=== PATIENT | male | born 1990 | race Caucasian/White ===

== ENCOUNTER 2016-11-19 19:55 | Inpatient (IN) ==
[2016-11-19] MEDS ORDERED: 0.9 % SODIUM CHLORIDE 1,000 ML IV ONE (21:29)
[2016-11-19] MEDS ORDERED: CLINDAMYCIN 600 MG in DEXTROSE 5% IN WATER 50 ML IV ONE (21:34)
[2016-11-19] MEDS: HYDROmorphone 2 MG/ML SYRINGE IV PRN ×2 (21:41→23:55)
--- NOTE | 2016-11-19 21:49 | Emergency Department Note ---
Dental HPI - General Chief complaint: Dental/Oral Stated complaint: swelling from abscess tooth Time Seen by Provider: 11/19/16 21:14 Source: patient Mode of arrival: ambulatory Limitations: no limitations - History of Present Illness HPI Narrative: 26 year old male presents with right sided facial swelling. He was seen here on the for dental pain and was prescribed Clindamycin. His swelling has gotten worse. He has Hot-potato voice and difficulty swallowing. No difficulty breathing. He states it isn't much pain but is pressure. He was seen here in August and diagnosed with Sialoadenitis. He was given Clinda and the next day was rushed to [facility] with a peritonsillar abscess. He had his tonsil out on the right side only. He is afraid this will happen again. He has had chills on and off. He wanted to come back yesterday but wanted to "give the antibiotics time". - Related Data Previous Rx's Medication Instructions Recorded Clindamycin HCl [Cleocin] 300 mg PO QID #40 capsule 11/16/16 Naproxen 500 mg PO BID #30 tablet 11/16/16 Allergies Allergy/AdvReac Type Severity Reaction Status Date / Time Penicillins Allergy Intermediate Difficulty Verified 09/06/16 03:26 Breathing Review of Systems All systems ED: reviewed and negative except as stated. Past Medical History - Past Medical History Medical history: Reports: other (previous tonsillar abscess) Surgical history ED: Reports: tonsillectomy (right side only) Family history: Reports: non-contributory - Social History smoking status: Current every day smoker Alcohol use: Reports: Unknown Drug use: Reports: unknown Physical Exam - General Limitations: no limitations General appearance: alert, other (unconfortable. Hot Potato voice) - Head Head exam: atraumatic - Eye Eye exam: Present: normal appearance. Absent: conjunctival injection - ENT ENT exam: mucous membranes moist, other (swelling extends 6cm below the jaw line on the right. There is also swelling up the cheek. Tender on palpation. Barely able to open his mouth. There is swelling of the posterior pharynx and swifting of the uvula to the left. No drainage seen. Foul breath) - Neck Neck exam: Present: tenderness. Absent: normal inspection, full ROM - Chest Chest inspection: Present: normal inspection, symmetric chest wall rise - Respiratory Respiratory exam: Present: normal lung sounds bilaterally - Cardiovascular Cardiovascular exam: Present: tachycardia, normal heart sounds - Abdominal Exam Abdominal exam: Present: soft, normal bowel sounds. Absent: tenderness - Extremities Exam Extremities exam: Present: normal inspection, full ROM - Neurological Exam Neurological exam: Present: alert, oriented X3, CN II-XII intact - Psychiatric Psychiatric exam: Present: normal affect, normal mood - Skin Skin exam: Present: warm, dry, intact Course Course Narrative: Patient care transferred to Dr. Bergman. Moved to ER T4 Vital Signs Temperature 97.6 F 11/19/16 19:56 Pulse Rate 113 H 11/19/16 19:56 Respiratory Rate 20 11/19/16 19:56 Blood Pressure 123/69 11/19/16 19:56 Pulse Oximetry (%) 97 11/19/16 19:56 Temperature 97.6 F 11/19/16 19:56 Pulse Rate 113 H 11/19/16 19:56 Respiratory Rate 20 11/19/16 19:56 Blood Pressure 123/69 11/19/16 19:56 Pulse Oximetry (%) 97 11/19/16 19:56 Dental/Oral - Lab Data Result diagrams: 11/19/16 21:30 11/19/16 21:30 Disposition Condition: Good Referrals: No,PCP [Primary Care Provider] -
[2016-11-19 22:10] LABS: Mean Cell Volume 86.2 fL (80.0-100.0); Mean Corpuscular Hemoglobin 29.4 pg (26.0-34.0); Platelet Count 247 K/mcL (140-440); RBC 4.79 M/mcL (4.50-5.90); Red Cell Distribution Width 13.2 % (11.5-14.5)
[2016-11-19 22:25] LABS: ALT/SGPT 11 U/l (0-40); Albumin 3.8 gm/dL (3.2-5.2); Alkaline Phosphatase 84 U/L (39-117); Blood Urea Nitrogen 15 mg/dl (6-20)
[2016-11-19 22:36] LABS: Band Neutrophils % 4 % (0-10); Lymphocytes % 9 % (15-49); Monocytes % (Manual) 9 % (1-12); Platelet Estimate NORMAL (NORMAL); RBC Morphology NORMAL (NORMAL); Segmented Neutrophils % 78 % (38-78)
[2016-11-19] MEDS ORDERED: DEXAMETHASONE 10 MG/ML VIAL IV ONE (23:15)
--- NOTE | 2016-11-19 23:36 | Internal Med History&Physical ---
Medical - H&P: [facility] Patient information: Note initiated : 11/19/16 at 11:32 pm Service Date, if different from initiated Date: [] Patient: Mckinley Gao 26 y/o M admitted on for swelling from abscess tooth. Chief Complaint: [] History of present illness: Mr. Gao is a 26 year old male presents today complaining of right-sided facial swelling, and difficulty swallowing. this patient was diagnosed with a left tonsillar abscess in August of this year, and underwent tonsillectomy. He says he did fine for about one month and then 2 days ago started to have pain and swelling in his right lower jaw and right face. He presented to the emergency room 2 days ago, and was given a prescription for oral clindamycin. He returned to the emergency room this evening, with fever and chills, increasing swelling and pain and a muffled voice. He is having some pain with trying to swallow, but denies shortness of breath or stridor. ER evaluation did show a 2.4 cm right. Tonsillar abscess. Dr. Ceron of ENT was contacted and suggested IV steroids and clindamycin. The patient currently reports his pain as 7 out of 10. -otherwise, the patient does report a mild headache. He says he has been struggling with pain and a right lower molar for at least several days, but has been unable to find a dentist. He denies new eye or ear symptoms, sore throat or cough, chest pain or palpitations, shortness of breath, abdominal pain, nausea or vomiting, diarrhea or constipation, dysuria. past medical history: recent peritonsillar abscess, status post right tonsillectomy. tobacco abuse current medications: Clindamycin 300 mg by mouth 4 times a day Naprosyn 500 mg by mouth twice a day allergies:Penicillin Family history: mother is , with a history of Crohn's disease and fibromyalgia. Father is , health was unknown. A grandmother had breast cancer. Social history: Patient is a current smoker.he has been smoking half pack of cigarettes per day on and off for at least 3 years. He denies alcohol or drug use. He works as a pharmacy clinical specialist. He is currently living with a roommate, and just recently started going through a divorce. Medical - H&P: Meds Home Medications Medication Instructions Recorded Confirmed Type Clindamycin HCl [Cleocin] 300 mg PO QID #40 capsule 11/16/16 11/19/16 Rx Naproxen 500 mg PO BID #30 tablet 11/16/16 11/19/16 Rx Allergies Allergy/AdvReac Type Severity Reaction Status Date / Time Penicillins Allergy Intermediate Difficulty Verified 09/06/16 03:26 Breathing Medical - H&P: Exam - Constitutional Vitals: Temp Pulse Resp BP Pulse Ox 97.6 F 113 H 20 123/69 97 11/19/16 19:56 11/19/16 19:56 11/19/16 19:56 11/19/16 19:56 11/19/16 19:56 on exam, he is a well-developed well-nourished young man who appears uncomfortable. Head: Normocephalic, atraumatic. Ears: TMs and canals are clear. Eyes:PERRLA, EOMI, anicteric. Pharynx:Is rather crowded. There is inflammation of the right lower jaw and market inflammation of the right posterior pharynx which is impinging on the airway somewhat. Otherwise, teeth appear in good repair. there is marked swelling of his right face down into the right submandibular area, with marked lymphadenopathy and tenderness. Neck: is supple, without JVD, thyromegaly, or bruits. Cardiac exam: Regular rate and rhythm, with normal S1 and S2, without murmurs, rubs, gallops. Lungs: Clear to auscultation, without rales, rhonchi, wheezes. Abdomen: Soft and nontender, without obvious masses. Extremities: Show no cyanosis, clubbing, edema. Neurologic:Patient is alert and oriented 3. Speech is a little bit muffled due to facial swelling. Otherwise exam is grossly nonfocal. Skin exam: Does not show any rashes or other worrisome lesions. Medical - H&P: Reslt - Labs CBC & Chem 7: 11/19/16 21:30 11/19/16 21:30 Labs: Short CBC 11/19/16 Range/Units 21:30 WBC 18.8 H (4.5-11.0) K/mcL Hgb 14.1 (13.5-16.5) g/dL Hct 41.3 (41.0-55.0) % Plt Count 247 (140-440) K/mcL BMP 11/19/16 21:30 Sodium 135 Potassium 3.5 Chloride 96 Carbon Dioxide 22 BUN 15 Creatinine 1.0 Glucose 106 H Calcium 8.9 Liver Function 11/19/16 Range/Units 21:30 Total Bilirubin 0.6 (0.0-1.0) mg/dL AST 14 (0-37) U/l ALT 11 (0-40) U/l Alkaline Phosphatase 84 (39-117) U/L Albumin 3.8 (3.2-5.2) gm/dL cT scan of neck: reported as showing a 2.4 cm peritonsillar abscess. Medical - H&P: A/P (1) Peritonsillar abscess Current visit: Yes Status: Acute (2) Tobacco abuse Current visit: Yes Status: Acute (3) Increased anion gap metabolic acidosis Current visit: Yes Status: Acute (4) Dental abscess Current visit: No Status: Acute - Narrative A/P Narrative: #1. ENT. Peritonsillar abscess, recurrent. -admit for IV fluids, IV antibiotics. -ENT consult.-Dr. Thayer may also contact an oral surgeon to rule out dental abscess tomorrow. -Pain meds 32. Infectious disease. -Patient meets SIRS criteria He so far, he does not appear to be septic. .-iV clindamycin,check blood cultures. -IV fluids. #3. Tobacco abuse. nicotine patch, if desired. #4. CODE STATUS: Full code. #5. DVT prophylaxis:Patient should be fairly low risk as he is ambulatory, and has minimal other risk factors. This visit took approximately 50 minutes, to review patient's records, interview and examine him, reviewed the case with the ANTONELLA Peoples, and write orders.
[2016-11-20] MEDS ORDERED: MAGNESIUM HYDROXIDE 30 ML ORAL.SUSP PO PRN (00:17)
[2016-11-20] MEDS ORDERED: ACETAMINOPHEN 325 MG TABLET PO PRN (00:17)
[2016-11-20] MEDS ORDERED: ONDANSETRON 4 MG/2 ML VIAL IV PRN (00:17)
[2016-11-20] MEDS ORDERED: POTASSIUM CHLORIDE 20 MEQ in DEXTROSE 5%-1/2NS 1,000 ML IV SCH (00:17)
[2016-11-20] MEDS ORDERED: NALOXONE HCL 0.4 MG/ML VIAL IV PRN (00:17)
[2016-11-20] MEDS ORDERED: HYDROmorphone 2 MG/ML SYRINGE ONE (00:46)
[2016-11-20] MEDS ORDERED: LORazepam 2 MG/ML VIAL IV PRN (00:46)
[2016-11-20] MEDS: 0.9 % SODIUM CHLORIDE 10 ML SYRINGE IV SCH ×4 (00:49→22:40)
[2016-11-20] MEDS: HYDROmorphone 2 MG/ML SYRINGE IV PRN ×5 (00:49→21:23)
[2016-11-20] MEDS: CLINDAMYCIN 300 MG in DEXTROSE 5% IN WATER 50 ML IV SCH ×3 (01:44→11:15)
[2016-11-20] MEDS ORDERED: CLINDAMYCIN 600 MG/4 ML VIAL ONE ×2 (04:42→11:03)
[2016-11-20 06:28] LABS: Basophils # (Auto) 0 K/mcL (0.0-0.3); Basophils % (Auto) 0.2 % (0.0-2.0); Eosinophils # (Auto) 0 K/mcL (0.0-0.7); Eosinophils % (Auto) 0 % (0.0-7.0); Granulocytes % (Auto) 94.7 % (38.0-78.0); Lymphocytes # (Auto) 0.6 K/mcL (1.5-4.8); Lymphocytes % (Auto) 3.2 % (15.5-49.0); Mean Cell Volume 86.9 fL (80.0-100.0); Mean Corpuscular HGB Conc 33.7 g/dL (31.0-36.0); Mean Corpuscular Hemoglobin 29.3 pg (26.0-34.0); Monocytes # (Auto) 0.3 K/mcL (0.1-0.9); Monocytes % (Auto) 1.9 % (1.0-12.0); Platelet Count 218 K/mcL (140-440); Red Cell Distribution Width 13.6 % (11.5-14.5)
[2016-11-20] MEDS ORDERED: DEXTROSE 5%-1/2NS W/20MEQ KCL 1,000 ML IV SCH (06:45)
[2016-11-20 06:59] LABS: Erythrocyte Sedimentation Rate 60 mm/hr (0-15)
[2016-11-20 07:06] LABS: ALT/SGPT 11 U/l (0-40); Albumin 3.7 gm/dL (3.2-5.2); Albumin/Globulin Ratio 1.1 (1.0-2.3); Alkaline Phosphatase 97 U/L (39-117); Bilirubin,Direct < 0.2 mg/dL (0.0-0.3); Blood Urea Nitrogen 12 mg/dl (6-20); Gamma Glutamyl Transpeptidase 24 U/L (8-61); Magnesium 2.3 mg/dL (1.6-2.5); Uric Acid 4.7 mg/dL (2.5-8.0)
[2016-11-20] MEDS: POTASSIUM CHLORIDE 20 MEQ in 0.45 % SODIUM CHLORIDE 1,000 ML IV SCH ×3 (09:22→20:30)
[2016-11-20] MEDS ORDERED: NICOTINE 21 MG PATCH TOPICAL SCH (10:00)
--- NOTE | 2016-11-20 12:41 | Internal Med Progress Note ---
Medical - PN: Subj Patient information: Note initiated : 11/20/16 at 12:41 pm Service Date, if different from initiated Date: [] Patient: Mckinley Gao 26 y/o M admitted on 11/20/16 for swelling from abscess tooth. Chief Complaint: [] Interval history: November 19, 2016: History of present illness: Mr. Gao is a 26 year old male presents today complaining of right-sided facial swelling, and difficulty swallowing. this patient was diagnosed with a left tonsillar abscess in August of this year, and underwent tonsillectomy. He says he did fine for about one month and then 2 days ago started to have pain and swelling in his right lower jaw and right face. He presented to the emergency room 2 days ago, and was given a prescription for oral clindamycin. He returned to the emergency room this evening, with fever and chills, increasing swelling and pain and a muffled voice. He is having some pain with trying to swallow, but denies shortness of breath or stridor. ER evaluation did show a 2.4 cm right. Tonsillar abscess. Dr. Ceron of ENT was contacted and suggested IV steroids and clindamycin. The patient currently reports his pain as 7 out of 10. -otherwise, the patient does report a mild headache. He says he has been struggling with pain and a right lower molar for at least several days, but has been unable to find a dentist. He denies new eye or ear symptoms, sore throat or cough, chest pain or palpitations, shortness of breath, abdominal pain, nausea or vomiting, diarrhea or constipation, dysuria. November 20, 2016: he patient reports he is feeling quite a bit better this morning. His throat feels less swollen and he is having less difficulty swallowing. He still has discomfort if he tries to chew food on the right side. He did have several episodes of chills and sweats during the night but this morning does not feel subjective fever or chills. He otherwise denies headache or dizziness, ear pain, significant trouble swallowing, chest pain or palpitations, shortness of breath, nausea or vomiting , diarrhea or constipation, dysuria. I did contact Dr. Alfaro of ENT this morning. He does not feel that it is appropriate for ENTto drain this patient's abscess again and instead feels that the patient needs to have several abscessed teeth pulled as this appears to be the root cause of his problem. I then called Dr. Morel of oral surgery, and reviewed the case with him. He will try to come over late this afternoon to review the patient's studies, and consult. - Constitutional Vitals: Vital Signs Temp Pulse Resp BP Pulse Ox 98.6 F 84 12 121/76 97 11/20/16 11:57 11/20/16 11:57 11/20/16 11:57 11/20/16 11:57 11/20/16 11:57 Period Temp Pulse Resp BP Sys/Salvador Pulse Ox Last 24 Hr 97.6 F-98.6 F 84-113 12- 121-136/69-87 97-98 Intake and Output 11/19/16 11/20/16 11/20/16 21:59 05:59 13:59 Intake Total 200 / 1254 240 / 240 Output Total 300 / 300 Balance -100 / 954 240 / 240 Weight 198 lb Intake & Output: Intake & Output 11/19/16 11/20/16 11/20/16 21:59 05:59 13:59 Intake Total 200 / 1254 240 / 240 Output Total 300 / 300 Balance -100 / 954 240 / 240 Weight 198 lb Intake: Oral 200 / 200 240 / 240 Output: Void Amount 300 / 300 Other: Meal Nourishment/Supplement Breakfast Percent of Meal Consumed 75% 25% Feeding Ability Independent Independent Pharynx:Is rather crowded. There continues to be inflammation of the right lower jaw and marked inflammation of the right posterior pharynx which is impinging on the airway somewhat. I don't see any obviously abscessed teeth, but the patient is unable to open his mouth fully, due to pain and swelling. Certainly the area around the right posterior lower molars is very swollen. there is marked swelling of his right face down into the right submandibular area, with marked lymphadenopathy and tenderness. the swelling seems improved today. Neck: is supple, without JVD, thyromegaly, or bruits. Cardiac exam: Regular rate and rhythm, with normal S1 and S2. Lungs: Clear to auscultation, without rales, rhonchi, wheezes. Abdomen: Soft and nontender, without obvious masses. Extremities: Show no cyanosis, clubbing, edema. Neurologic:Patient is alert and oriented 3. Speech is less muffled today. Medical - PN: Obj Da - Labs CBC & Chem 7: 11/20/16 05:17 11/20/16 05:17 Labs: Abnormal Lab Results 11/20/16 11/20/16 05:17 05:17 WBC 17.7 H Hct 40.0 L Gran % 94.7 H Lymph % (Auto) 3.2 L Gran # 16.8 H Lymph # 0.6 L ESR 60 H Glucose 190 H Phosphorus 2.1 L cT scan of the neck: Reportedly showed a 2.6 cm peritonsillar abscess on the right. Meds: Medications Acetaminophen (Tylenol) 650 mg PO Q6HP PRN PRN Reason: PAIN/FEVER > 101 Hydromorphone HCl (Dilaudid) 1 mg IV Q1H PRN PRN Reason: Pain Last Admin: 11/20/16 08:54 Dose: 1 mg Clindamycin Phosphate 300 mg/ (Dextrose) 52 mls @ 100 mls/hr IV Q6H [facility]KE Last Admin: 11/20/16 11:15 Dose: 100 mls/hr Potassium Chloride 20 meq/ (Sodium Chloride) 1,010 mls @ 100 mls/hr IV .Q10H6M [facility] Last Admin: 11/20/16 09:22 Dose: 100 mls/hr Lorazepam (Ativan) 0.5 mg IV HS PRN PRN Reason: Sleep Magnesium Hydroxide (Milk Of Magnesia) 30 ml PO DAILYP PRN PRN Reason: Constipation Naloxone HCl (Narcan) 0.1 mg IV Q2MIN PRN PRN Reason: Opiate Reversal Nicotine (Nicoderm) 21 mg TOPICAL DAILY@1000 BURKE Ondansetron HCl (Zofran) 4 mg IV Q6HP PRN PRN Reason: Nausea And Vomiting Sodium Chloride (Saline Flush) 10 ml IV Q8 [facility] Last Admin: 11/20/16 05:18 Dose: Not Given Medical - PN: A/P - Time Spent With Patient Total time spent is greater than 50% in coordination of care (as documented) at patient's floor/unit and/or counseling patient: 25 - 35 minutes (1) Peritonsillar abscess Status: Acute Current Visit: Yes (2) Tobacco abuse Status: Acute Current Visit: Yes (3) Increased anion gap metabolic acidosis Status: Acute Current Visit: Yes (4) Dental abscess Status: Acute Current Visit: No - Narrative A/P Narrative: #1. ENT. Peritonsillar abscess, recurrent. the patient tells me that he actually had the right tonsil removed in August ENT feels this is an abscess extending from his right lower jaw molars. -Dr. Morel from oral surgery has been consulted. He will try to see the patient later today. -Continue IV fluids and IV clindamycin. -Pain meds 32. Infectious disease. -Patient meets SIRS criteria .he is quite a bit improved today. .-iV clindamycin,check blood cultures. -IV fluids. #3. Tobacco abuse. nicotine patch was ordered. #4. CODE STATUS: Full code. #5. DVT prophylaxis:Patient should be fairly low risk as he is ambulatory, and has minimal other risk factors. This visit took approximately 30 minutes today, to interview and examine the patient, review test results, review his case with both Dr. Alfaro of ENT and Dr. Morel of oral surgery. Medical - PN: Qual - VTE Deep Vein Thrombosis/Pulmonary Embolism Present on Admission: No
--- NOTE | 2016-11-20 15:59 | General Surgery Consult Note ---
History of Present Illness Patient information: Note initiated : 11/20/16 at 3:57 pm Service Date, if different from initiated Date: [] Patient: Mckinley Gao 26 y/o M admitted on 11/20/16 for swelling from abscess tooth. Chief Complaint: PATIENT HAS SWELLING OF RIGHT FACE WITH TOOTH PAIN AND DIFFICULTY OPENING MOUTH AND SWALLOWING. Reason for consult: other (FACIAL ABSCESS ASSUMED ODONTOGENIC ORIGIN) Requesting physician: Honey Carnes History of present illness: 48 HOURS OF INCREASED DENTAL PAIN AND SWELLING. WENT TO MULTIPLE PROVIDERS AND NOT TREATED. CAME TO ER AND ADMITTED WITH ELEVATED WHITE COUNT, FACIAL SWELLING , TRISMUS AND DYSPHAGIA. HE IS CURRENTLY ON DEXAMETHASONE AND CLINDAMYCIN. PATIENT REPORTS IT IS A LITTLE BETTER. PMH: REVIEWED [facility]: REVIEWED MEDS: REVIEWED ALLG: REVIEWED PE; PATIENT IS AWAKE, ALERT WITH SWELLING OF HIS RIGHT JAW. HE HAS SWELLING OF HIS RIGHT CASINO CHANGE ATTENDANT AND SUBMANDIBULAR SPACE MILD TO MODERATE WITH INDURATION. MAXIMUM INCISAL OPENING OF 1.5-2 CM FLOOR OF MOUTH AND RIGHT BUCCAL SPACE HAVE MILD SWELLING I REVIEWED LABS A: ASA 2 MALE WITH RIGHT ODONTOGENIC ABSCESS WITH SWELLING IN THE RIGHT CASINO CHANGE ATTENDANT AND SUBMANDIBULAR SPACE p: PATIENT LAST AT 5.5 HOURS AGO. HE IS STABLE FOR NOW. WE WE PLACE ON PULSEOXYMETRY AND DO HIM FIRST THING IN THE MORNING. I WILL UP HIS CLINDAMYCIN TO 600MG QID IV. HE IS TO BE NPO. Medications and Allergies Home Medications Medication Instructions Recorded Confirmed Type Clindamycin HCl [Cleocin] 300 mg PO QID #40 capsule 11/16/16 11/20/16 Rx Naproxen 500 mg PO BID #30 tablet 11/16/16 11/20/16 Rx Allergies Allergy/AdvReac Type Severity Reaction Status Date / Time Penicillins Allergy Severe Difficulty Verified 11/20/16 06:41 Breathing Exam Temp Pulse Resp BP Pulse Ox 98.6 F 84 12 121/76 97 11/20/16 11:57 11/20/16 11:57 11/20/16 11:57 11/20/16 11:57 11/20/16 11:57 Results - Labs 11/20/16 05:17 11/20/16 05:17 Abnormal lab results 11/20/16 11/20/16 Range/Units 05:17 05: WBC 17.7 H (4.5-11.0) K/mcL Hct 40.0 L (41.0-55.0) % Gran % 94.7 H (38.0-78.0) % Lymph % (Auto) 3.2 L (15.5-49.0) % Gran # 16.8 H (1.8-8.0) K/mcL Lymph # 0.6 L (1.5-4.8) K/mcL ESR 60 H (0-15) mm/hr Glucose 190 H (70-105) mg/dL Phosphorus 2.1 L (2.7-4.5) mg/dL Diabetes panel 11/20/16 Range/Units 05:17 Sodium 137 (133-145) mmol/L Potassium 4.1 (3.3-5.1) mmol/L Chloride 101 (96-108) mmol/L Carbon Dioxide 24 (22-30) mmol/L BUN 12 (6-20) mg/dl Creatinine 0.9 (0.7-1.2) mg/dl Glucose 190 H (70-105) mg/dL Calcium 9.0 (8.6-10.4) mg/dl AST 13 (0-37) U/l ALT 11 (0-40) U/l Alkaline Phosphatase 97 (39-117) U/L Total Protein 7.0 (5.9-8.4) gm/dL Albumin 3.7 (3.2-5.2) gm/dL Triglycerides 90 (<150) mg/dl Calcium panel 11/20/16 Range/Units 05:17 Calcium 9.0 (8.6-10.4) mg/dl Phosphorus 2.1 L (2.7-4.5) mg/dL Albumin 3.7 (3.2-5.2) gm/dL Pituitary panel 11/20/16 Range/Units 05:17 Sodium 137 (133-145) mmol/L Potassium 4.1 (3.3-5.1) mmol/L Chloride 101 (96-108) mmol/L Carbon Dioxide 24 (22-30) mmol/L BUN 12 (6-20) mg/dl Creatinine 0.9 (0.7-1.2) mg/dl Glucose 190 H (70-105) mg/dL Calcium 9.0 (8.6-10.4) mg/dl Adrenal panel 11/20/16 Range/Units 05:17 Sodium 137 (133-145) mmol/L Potassium 4.1 (3.3-5.1) mmol/L Chloride 101 (96-108) mmol/L Carbon Dioxide 24 (22-30) mmol/L BUN 12 (6-20) mg/dl Creatinine 0.9 (0.7-1.2) mg/dl Glucose 190 H (70-105) mg/dL Calcium 9.0 (8.6-10.4) mg/dl Total Bilirubin 0.4 (0.0-1.0) mg/dL AST 13 (0-37) U/l ALT 11 (0-40) U/l Alkaline Phosphatase 97 (39-117) U/L Total Protein 7.0 (5.9-8.4) gm/dL Albumin 3.7 (3.2-5.2) gm/dL All other labs normal.
[2016-11-20] MEDS: CLINDAMYCIN 600 MG in DEXTROSE 5% IN WATER 50 ML IV SCH ×2 (17:32→23:16)
[2016-11-21] MEDS: HYDROmorphone 2 MG/ML SYRINGE IV PRN ×9 (00:53→22:24)
[2016-11-21] MEDS: POTASSIUM CHLORIDE 20 MEQ in 0.45 % SODIUM CHLORIDE 1,000 ML IV SCH ×3 (05:12→21:43)
[2016-11-21] MEDS: CLINDAMYCIN 600 MG in DEXTROSE 5% IN WATER 50 ML IV SCH ×4 (05:58→23:50)
[2016-11-21] MEDS: 0.9 % SODIUM CHLORIDE 10 ML SYRINGE IV SCH ×3 (06:01→22:22)
[2016-11-21 06:02] LABS: Basophils # (Auto) 0.1 K/mcL (0.0-0.3); Basophils % (Auto) 0.2 % (0.0-2.0); Eosinophils # (Auto) 0 K/mcL (0.0-0.7); Eosinophils % (Auto) 0 % (0.0-7.0); Granulocytes % (Auto) 82.9 % (38.0-78.0); Lymphocytes % (Auto) 9.5 % (15.5-49.0); Mean Cell Volume 87.2 fL (80.0-100.0); Mean Corpuscular HGB Conc 33.9 g/dL (31.0-36.0); Mean Corpuscular Hemoglobin 29.6 pg (26.0-34.0); Monocytes # (Auto) 1.5 K/mcL (0.1-0.9); Monocytes % (Auto) 7.4 % (1.0-12.0); Platelet Count 243 K/mcL (140-440); RBC 4.04 M/mcL (4.50-5.90); Red Cell Distribution Width 13.6 % (11.5-14.5)
[2016-11-21 06:29] LABS: ALT/SGPT 11 U/l (0-40); Albumin 3.3 gm/dL (3.2-5.2); Alkaline Phosphatase 109 U/L (39-117); Bilirubin,Direct < 0.2 mg/dL (0.0-0.3); Blood Urea Nitrogen 14 mg/dl (6-20); Gamma Glutamyl Transpeptidase 21 U/L (8-61); Magnesium 1.8 mg/dL (1.6-2.5); Uric Acid 4.5 mg/dL (2.5-8.0)
[2016-11-21] MEDS ORDERED: ceFAZolin 1 GM VIAL ONE (07:39)
[2016-11-21] MEDS ORDERED: KETAMINE 100 MG/ML ML IV ONE (07:40)
[2016-11-21] MEDS ORDERED: ONDANSETRON 4 MG/2 ML VIAL IV ONE (07:40)
[2016-11-21] MEDS ORDERED: LIDOCAINE HCL/PF 100 MG/5 ML SYRINGE IV ONE (07:40)
[2016-11-21] MEDS ORDERED: ROCURONIUM 10 MG/ML ML IV ONE (07:40)
[2016-11-21] MEDS ORDERED: PROPOFOL 200 MG/20 ML VIAL IV ONE (07:40)
[2016-11-21] MEDS ORDERED: fentaNYL 250 MCG/5 ML VIAL IV ONE (07:40)
[2016-11-21] MEDS ORDERED: DEXAMETHASONE 10 MG/ML VIAL IV ONE (07:40)
[2016-11-21] MEDS ORDERED: KETOROLAC 30 MG/ML VIAL IV ONE (07:40)
[2016-11-21] MEDS ORDERED: HYDROmorphone 2 MG/ML SYRINGE IV ONE (07:40)
[2016-11-21] MEDS ORDERED: SUCCINYLCHOLINE 20 MG/ML ML IV ONE (07:40)
[2016-11-21] MEDS ORDERED: MIDAZOLAM 5 MG/5 ML VIAL IV ONE (07:40)
[2016-11-21] MEDS ORDERED: ceFAZolin 1 GM VIAL IV SCH (07:45)
[2016-11-21 08:16] LABS: Erythrocyte Sedimentation Rate 57 mm/hr (0-15)
[2016-11-21] MEDS ORDERED: IPRATROPIUM/ALBUTEROL 3 ML AMPUL.NEB NEB PRN (08:23)
[2016-11-21] MEDS ORDERED: diphenhydrAMINE 50 MG/ML VIAL IV PRN (08:23)
[2016-11-21] MEDS ORDERED: PROMETHAZINE 25 MG/ML VIAL IM PRN (08:23)
[2016-11-21] MEDS ORDERED: MEPERIDINE 25 MG/ML SYRINGE IV PRN (08:23)
[2016-11-21] MEDS ORDERED: ONDANSETRON 4 MG/2 ML VIAL IV PRN ×2 (08:23→09:28)
[2016-11-21] MEDS ORDERED: BENZOCAINE/MENTHOL 1 LOZENGE PO PRN ×2 (08:23→09:28)
[2016-11-21] MEDS ORDERED: fentaNYL 100 MCG/2 ML VIAL IV PRN ×2 (08:23→09:28)
[2016-11-21] MEDS ORDERED: LACTATED RINGERS 250 ML IV PRN (08:23)
[2016-11-21] MEDS ORDERED: PROMETHAZINE 25 MG/ML VIAL IV PRN (08:23)
[2016-11-21] MEDS ORDERED: ePHEDrine 50 MG/ML AMPUL IV PRN (08:23)
[2016-11-21] MEDS ORDERED: HYDROmorphone 2 MG/ML SYRINGE IV PRN (08:23)
[2016-11-21] MEDS ORDERED: MEPERIDINE 50 MG/ML SYRINGE IM PRN (08:23)
[2016-11-21] MEDS ORDERED: METOCLOPRAMIDE 10 MG/2 ML VIAL IV PRN (08:23)
[2016-11-21] MEDS ORDERED: FLUMAZENIL 0.1 MG/ML ML IV PRN (08:23)
[2016-11-21] MEDS ORDERED: METHOCARBAMOL 1,000 MG/10 ML VIAL IV PRN (08:23)
[2016-11-21] MEDS ORDERED: LACTATED RINGERS 1,000 ML IV SCH (08:30)
[2016-11-21] MEDS ORDERED: BUPIVACAINE W/EPI 0.5% 50 ML VIAL IJ ONE (08:34)
--- NOTE | 2016-11-21 08:56 | Brief Operative Note ---
Date of procedure: 11/21/16 Pre-op diagnosis: Right submandibular, plant machinist space abscess; carious dentition Post-op diagnosis: other (Right plant machinist space abscess, right submandibular space abscess, right peritonsillar abscess, carious infected ,32) Procedure: incision and drainage of right peritonsillar space abscess, incision and drainage of right submandibular space abscess, removal of impacted malopposed , 32 Grafts/Implants: No Anesthesia: GETA Findings: 150 cc purulence right peritonsillar, submandibular and plant machinist space Complications: none Surgeon: Mayra Morel Specimens Removed/Pathology: other (purulence right neck and throat for cultures and sensitivities) Condition: critical Disposition: ICU (intubated with airway surveillance)
[2016-11-21] MEDS ORDERED: KETOROLAC 30 MG/ML VIAL IV PRN (09:00)
[2016-11-21] MEDS ORDERED: ACETAMINOPHEN 1,000 MG/100 ML BOTTLE IV PRN (09:00)
[2016-11-21] MEDS ORDERED: PROPOFOL 1,000 MG in PREMIX 1 BAG IV ONE ×3 (09:25→12:07)
[2016-11-21] MEDS ORDERED: MAGNESIUM HYDROXIDE 30 ML ORAL.SUSP PO PRN (09:28)
[2016-11-21] MEDS ORDERED: NALOXONE HCL 0.4 MG/ML VIAL IV PRN (09:28)
[2016-11-21] MEDS ORDERED: ACETAMINOPHEN 325 MG TABLET PO PRN (09:28)
[2016-11-21] MEDS ORDERED: IPRATROPIUM/ALBUTEROL 3 ML AMPUL.NEB NEB SCH (09:30)
[2016-11-21] MEDS ORDERED: PROPOFOL 100 ML IV SCH (09:30)
[2016-11-21] MEDS: methylPREDNISolone SOD SUCC 125 MG/2 ML VIAL IV SCH ×3 (10:23→21:43)
[2016-11-21] MEDS: NICOTINE 21 MG PATCH TOPICAL SCH (10:41)
--- NOTE | 2016-11-21 11:35 | XRay Report ---
CLINICAL INFORMATION: ET placement COMPARISON: None. FINDINGS: Endotracheal tip is on the sara. The heart is normal for technique. Mediastinum and pulmonary vessels are unremarkable. There is mild bibasilar atelectasis. No effusion IMPRESSION: Malpositioned endotracheal tube - tip is on the sara. Nurses instructed to withdraw tube 3 cm Mild bibasilar atelectasis. Interpreted and Authenticated by: Chandler Polanco 11/21/16
--- NOTE | 2016-11-21 11:40 | Operative Note ---
DATE OF OPERATION: 11/21/2016 PREOPERATIVE DIAGNOSES: 1. Emergent airway. 2. Right peritonsillar abscess. 3. Right submandibular abscess. 4. Right supervisor taping space abscess. POSTOPERATIVE DIAGNOSES: 1. Emergent airway. 2. Right peritonsillar abscess. 3. Right submandibular abscess. 4. Right supervisor taping space abscess. 5. Carious, infected, fractured teeth 1 and 32. PROCEDURE: 1. Incision and drainage of right peritonsillar abscess, right submandibular space abscess, right supervisor taping space abscess. 2. Removal of teeth 1 and 32. SURGEON: Mayra Morel DDS. ANESTHESIA: C-Mac oral endotracheal tube general anesthetic. ESTIMATED BLOOD LOSS: 150 mL. SPECIMENS: Purulent right peritonsillar and right submandibular space submitted for culture and sensitivity. FLUIDS: 1.2 liters of Lactated Ringer's. DRAINS: Right neck 1/2-inch [place] in the submandibular and supervisor taping space. DRESSINGS: Drain dressing, right face and neck. DISPOSITION: Critical, to the ICU. HISTORY: This is a 26-year-old male who has been treated by an ear, nose and throat surgeon for peritonsillar abscess and peripharyngeal abscess on multiple occasions. The patient has been very noncompliant and recently has been feeling he has had odontogenic pain. He has been unable to afford and unwilling to pay for getting these teeth removed by a dentist. He went to the emergency room two days ago with pain, swelling, trismus, difficulty swallowing. He was treated in the hospital, and I was consulted. I identified the diagnosis on the patient and consent the patient to go to the operating room for treatment. DESCRIPTION OF PROCEDURE: In the operating room he was emergently intubated with a C-Mac. It was a very difficult airway. He had a lot of soft palate and lateral pharyngeal edema. He was prepped and draped for an intraoral/extraoral complex approach to the submandibular space, the supervisor taping space and also to the tonsil space. Local anesthesia was used to anesthetize these locations, and 15 blade was used to make incisions and mosquito hemostats and Crile hemostats were used to access these areas. Copious purulence, approximately 150 mL of purulence was evacuated from the neck and peritonsillar spaces. Cultures were sent, and 1000 mL of fluid via red rubber catheter were used to irrigate these locations. Drains, 1/2-inch [place] were placed on both sides of the mandible, lingual and buccal to a dependent site in the neck. The throat pack was removed. Oropharynx, nasopharynx, hypopharynx were suctioned. An orogastric tube was placed, and patient was suctioned. Intraoral gauze and fluff with the Medipore were placed on the outside drains. The patient was then taken to the ICU intubated. He will be watched for airway surveillance prior to extubating. He will be on antibiotics and steroids. CHIO:raven Job ID: [id number] Doc ID: [id number] Mayra Morel DDS
--- NOTE | 2016-11-21 14:27 | XRay Report ---
CLINICAL INFORMATION: ET tube placement COMPARISON: 11/21/2016 FINDINGS: Endotracheal tube is now moderately position with the tip 4 cm above the sara. Heart size, mediastinum and pulmonary vessels are normal. There is now dense consolidation atelectasis the left lower lobe. Small left pleural effusion noted IMPRESSION: 1. The tracheal tube now in satisfactory position. 2. Densely consolidated atelectasis of the left lower lobe - suspect mucous plug obstruction of the left lower lobe bronchus Interpreted and Authenticated by: Chandler Polanco 11/21/16
--- NOTE | 2016-11-21 14:37 | Internal Med Progress Note ---
Medical - PN: Subj Patient information: Note initiated : 11/21/16 at 2:31 pm Service Date, if different from initiated Date: [] Patient: Mckinley Gao 26 y/o M admitted on 11/20/16 for Swelling from Abscess Tooth/Peritonsillar Abscess. Chief Complaint: [] Interval history: November 19, 2016: History of present illness: Mr. Gao is a 26 year old male presents today complaining of right-sided facial swelling, and difficulty swallowing. this patient was diagnosed with a left tonsillar abscess in August of this year, and underwent tonsillectomy. He says he did fine for about one month and then 2 days ago started to have pain and swelling in his right lower jaw and right face. He presented to the emergency room 2 days ago, and was given a prescription for oral clindamycin. He returned to the emergency room this evening, with fever and chills, increasing swelling and pain and a muffled voice. He is having some pain with trying to swallow, but denies shortness of breath or stridor. ER evaluation did show a 2.4 cm right. Tonsillar abscess. Dr. Ceron of ENT was contacted and suggested IV steroids and clindamycin. The patient currently reports his pain as 7 out of 10. -otherwise, the patient does report a mild headache. He says he has been struggling with pain and a right lower molar for at least several days, but has been unable to find a dentist. He denies new eye or ear symptoms, sore throat or cough, chest pain or palpitations, shortness of breath, abdominal pain, nausea or vomiting, diarrhea or constipation, dysuria. November 20, 2016: he patient reports he is feeling quite a bit better this morning. His throat feels less swollen and he is having less difficulty swallowing. He still has discomfort if he tries to chew food on the right side. He did have several episodes of chills and sweats during the night but this morning does not feel subjective fever or chills. He otherwise denies headache or dizziness, ear pain, significant trouble swallowing, chest pain or palpitations, shortness of breath, nausea or vomiting , diarrhea or constipation, dysuria. I did contact Dr. Alfaro of ENT this morning. He does not feel that it is appropriate for ENTto drain this patient's abscess again and instead feels that the patient needs to have several abscessed teeth pulled as this appears to be the root cause of his problem. I then called Dr. Morel of oral surgery, and reviewed the case with him. He will try to come over late this afternoon to review the patient's studies, and consult. November 21: Patient seen examined, the patient was seen after his surgery. On my evaluation patient was intubated and sedated. He underwent drainage of his abscess, periodental and peritonsillar abscess. There was concern for him maintaining his airway, therefore the patient was kept intubated and will remain so till we are comfortable extubating him. Dr Beckman is following the patient. Pertinent ROS: unable due to mental condition. Additional PMFSH (Level 3 Only): reviewed - Constitutional Vitals: Vital Signs Temp Pulse Resp BP Pulse Ox 99.0 F H 100 H 12 107/68 99 11/21/16 09:15 11/21/16 09:15 11/21/16 14:08 11/21/16 09:15 11/21/16 14:08 Period Temp Pulse Resp BP Sys/Salvador Pulse Ox Last 24 Hr 98.6 F-99.7 F 77-107 12-24 107-153/68-92 94-100 Intake and Output 11/21/16 11/21/16 11/21/16 05:59 13:59 21:59 Intake Total 354 / 354 4124 / 4124 97 / 97 Output Total 1370 / 1370 100 / 100 Balance 354 / 354 2754 / 2754 -3 / -3 Intake & Output: Intake & Output 11/21/16 11/21/16 11/21/16 05:59 13:59 21:59 Intake Total 354 / 354 4124 / 4124 97 / 97 Output Total 1370 / 1370 100 / 100 Balance 354 / 354 2754 / 2754 -3 / -3 Intake: IV 54 / 54 2324 / 2324 97 / 97 Cleocin 600 mg In / 107 / 107 Dextrose 5% in Water 50 ml @ 100 mls/hr IV Q6H [facility] Rx#:[id number] Potassium Chloride 20 Meq 1152 / 1152 In Sodium Chloride 0.45% 1,000 ml @ 100 mls/hr IV .Q10H6M [facility] Rx#: [id number] Diprivan 1,000 mg In 45 / 45 Premix 1 Bag @ 25 MCG/KG/ MIN 13.47 mls/hr IV . Q7H26M ONE Rx#:[id number] Oral 300 / 300 IV - Manual Only 1800 / 1800 Output: Urine Catheter Amount 1370 / 1370 100 / 100 Exam: Constitutional; Afebrile, intubated and sedated. Eyes- No icterus, , No periorbital swelling Ears- Ext ear normal, no discharge. Neck- Midline trachea, supple, right side swollen, drains noted. Respiratory system: Air Entry equal on both sides, No crackles or wheezing, no rhonchi. CVS- Rate rhythm regular, S1,S2 heard, no gallop, no rub. Abdomen- Soft nontender abdomen, no organomegaly, no tenderness, no guarding or rigidity, AIR POLLUTION SPECIALIST- AOOx0 sedated and intubated. Medical - PN: Obj Da - Labs CBC & Chem 7: 11/21/16 04:55 11/21/16 04:55 Labs: Abnormal Lab Results 11/21/16 11/21/16 11/20/16 04:55 04:55 05:17 WBC 20.9 H RBC 4.04 L Hgb 12.0 L Hct 35.3 L Gran % 82.9 H Lymph % (Auto) 9.5 L Gran # 17.3 H Lymph # [place] # 1.5 H ESR 57 H Glucose 109 H 190 H Phosphorus 2.1 L 11/20/16 05:17 WBC 17.7 H RBC Hgb Hct 40.0 L Gran % 94.7 H Lymph % (Auto) 3.2 L Gran # 16.8 H Lymph # 0.6 L [place] # ESR 60 H Glucose Phosphorus Meds: Medications Acetaminophen (Tylenol) 650 mg PO Q6HP PRN PRN Reason: PAIN/FEVER > 101 Chlorhexidine Gluconate (Peridex) 15 ml SWABMOUTH BID [facility] Famotidine (Pepcid) 20 mg IV Q12 [facility] Hydromorphone HCl (Dilaudid) 1 mg IV Q1HP PRN PRN Reason: Pain Last Admin: 11/21/16 11:04 Dose: 1 mg Clindamycin Phosphate 600 mg/ (Dextrose) 54 mls @ 100 mls/hr IV Q6H [facility] Last Infusion: 11/21/16 12:30 Dose: Infused Potassium Chloride 20 meq/ (Sodium Chloride) 1,010 mls @ 100 mls/hr IV .Q10H6M [facility] Last Infusion: 11/21/16 12:30 Dose: 100 mls/hr Magnesium Hydroxide (Milk Of Magnesia) 30 ml PO DAILYP PRN PRN Reason: Constipation Methylprednisolone Sodium Succinate (Solu-Medrol) 62.5 mg IV Q8 [facility] Last Admin: 11/21/16 10:23 Dose: 62.5 mg Naloxone HCl (Narcan) 0.1 mg IV Q2MIN PRN PRN Reason: Opiate Reversal Nicotine (Nicoderm) 21 mg TOPICAL DAILY@1000 [facility] Last Admin: 11/21/16 10:41 Dose: 21 mg Ondansetron HCl (Zofran) 4 mg IV Q6HP PRN PRN Reason: Nausea And Vomiting Sodium Chloride (Saline Flush) 10 ml IV Q8 [facility] Medical - PN: A/P - Time Spent With Patient Total time spent is greater than 50% in coordination of care (as documented) at patient's floor/unit and/or counseling patient: Greater than 35 minutes (Critical care time spent, reviwing ABG, managing Vent, IV sedation, labs and care coordination.) - Narrative A/P Narrative: Periodontal Abscess/ Yeimi tonsillar abscess: s/p drainage, continue IV steroids and IV clindamycin, await cultures. OMS following Sepsis: due to above, not in shock, source control and IV abx Mechanical Ventilation for airway protection: Due to edema in the neck. [facility] ventilation for now, IV steroids. Monitor. presently at baseline settings TV 500, Fio2 30, RR 12, PEEP 5, Peak airway pressure 17, PPlat 13 sedation proporol and IV prn dilaudid for pain. ABG reviewed, Acute respiratory acidosis/ Metabolic alkalosis. Ph is normal. DVT hepatin sq diet NPO for now. Code full Medical - PN: Qual - VTE Deep Vein Thrombosis/Pulmonary Embolism Present on Admission: No
[2016-11-21] MEDS: PROPOFOL 1,000 MG in PREMIX 1 BAG IV SCH ×2 (17:55→21:36)
--- NOTE | 2016-11-21 18:25 | Cat Scan Report ---
CLINICAL INFORMATION: Right facial swelling. History of tonsil surgery two months prior COMPARISON: None. TECHNIQUE: 80 cc of Isovue-300 were injected intravenously and 25 seconds later, 2.5 mm helical slices were obtained from the inferior orbit through the supraclavicular region. Following reconstruction, 2.5 mm sagittal and coronal reformations were processed. The exam was reviewed at bone and soft tissue windows FINDINGS: There is a large (5 cm maximal dimension) abscess diffusely throughout the right stone sawyer space involving the masseter muscles, superficial temporal and both medial lateral lateral pterygoid. It extends to the right pharyngeal wall displacing the pharynx leftward. There is mild (left than 50%) pharyngeal diameter narrowing [There is mild inflammatory changes in the region of the right palatine tonsil - this may be postsurgical rather than infectious. The There are multiple moderately enlarged reactive deep cervical lymph nodes including region level two and level three lymph nodes bilaterally. They're larger and more numerous on the right side. The carotid and jugular vascular systems are normal. Epiglottis and aryepiglottic folds and vocal cords are normal. The trachea is normal. Thyroid shows no abnormality. Lung apices are normal. The submandibular and parotid glands are unremarkable. IMPRESSION: 1. Large (5 cm) abscess dominating the entire right stone sawyer space. It involves the masseter, medial lateral lateral lateral pterygoid and superficial temporal muscle bellies. There is a 9 mm radiolucent lesion adjacent to the root of the right posterior mandibular molar which may represent an odontogenic abscess. This may account for the origin of the infection. The infection has displaced the pharynx leftward resulting in mild pharyngeal narrowing. There are also moderately enlarged reactive the cervical lymph nodes bilaterally at level two and level three. They're larger and more numerous on the right side. Interpreted and Authenticated by: Chandler Polanco 11/21/16
[2016-11-21] MEDS: HEPARIN 5,000 UNIT/ML VIAL SQ SCH (21:43)
[2016-11-21] MEDS: FAMOTIDINE/PF 20 MG/2 ML VIAL IV SCH (21:43)
[2016-11-21] MEDS: CHLORHEXIDINE GLUCONATE 1 ML ORAL.SOL SWABMOUTH SCH (21:44)
[2016-11-21] MEDS ORDERED: LORazepam 2 MG/ML VIAL ONE (22:42)
[2016-11-21] MEDS ORDERED: fentaNYL 2,500 MCG in 0.9 % SODIUM CHLORIDE 200 ML IV SCH (22:45)
[2016-11-21] MEDS ORDERED: fentaNYL 100 MCG/2 ML VIAL IV ONE (22:54)
[2016-11-22] MEDS: LORazepam 2 MG/ML VIAL IV PRN ×3 (00:10→21:37)
[2016-11-22] MEDS ORDERED: fentaNYL 100 MCG/2 ML VIAL IV ONE ×2 (03:27→03:42)
[2016-11-22] MEDS: methylPREDNISolone SOD SUCC 125 MG/2 ML VIAL IV SCH ×3 (05:23→21:36)
[2016-11-22] MEDS: CLINDAMYCIN 600 MG in DEXTROSE 5% IN WATER 50 ML IV SCH ×4 (05:24→23:59)
[2016-11-22] MEDS: 0.9 % SODIUM CHLORIDE 10 ML SYRINGE IV SCH ×3 (05:24→20:28)
[2016-11-22 05:32] LABS: Basophils # (Auto) 0 K/mcL (0.0-0.3); Basophils % (Auto) 0 % (0.0-2.0); Eosinophils # (Auto) 0 K/mcL (0.0-0.7); Eosinophils % (Auto) 0 % (0.0-7.0); Granulocytes % (Auto) 89.2 % (38.0-78.0); Lymphocytes # (Auto) 1.2 K/mcL (1.5-4.8); Mean Cell Volume 88.9 fL (80.0-100.0); Mean Corpuscular HGB Conc 33.5 g/dL (31.0-36.0); Mean Corpuscular Hemoglobin 29.8 pg (26.0-34.0); Monocytes # (Auto) 0.4 K/mcL (0.1-0.9); Monocytes % (Auto) 2.8 % (1.0-12.0); Platelet Count 235 K/mcL (140-440); RBC 4.14 M/mcL (4.50-5.90); Red Cell Distribution Width 13.4 % (11.5-14.5)
[2016-11-22 06:09] LABS: ALT/SGPT 9 U/l (0-40); Albumin 3.5 gm/dL (3.2-5.2); Albumin/Globulin Ratio 1.1 (1.0-2.3); Alkaline Phosphatase 74 U/L (39-117); Bilirubin,Direct < 0.2 mg/dL (0.0-0.3); Blood Urea Nitrogen 18 mg/dl (6-20); Gamma Glutamyl Transpeptidase 26 U/L (8-61); Magnesium 2.2 mg/dL (1.6-2.5)
--- NOTE | 2016-11-22 07:44 | XRay Report ---
CLINICAL INFORMATION: Dyspnea COMPARISON: 11/21/2016 FINDINGS: Endotracheal tube is in satisfactory position. Cardiomediastinal silhouette and pulmonary vessels are normal. The lungs are clear. No effusions. IMPRESSION: Negative exam - complete interval resolution in left lower lobe atelectasis Interpreted and Authenticated by: Chandler Polanco 11/22/16
[2016-11-22] MEDS ORDERED: RACEPINEPHRINE 0.5 ML AMPUL.NEB NEB ONE (08:06)
[2016-11-22] MEDS: POTASSIUM CHLORIDE 20 MEQ in 0.45 % SODIUM CHLORIDE 1,000 ML IV SCH ×2 (09:11→20:08)
[2016-11-22] MEDS: HEPARIN 5,000 UNIT/ML VIAL SQ SCH ×2 (09:24→20:27)
[2016-11-22] MEDS: CHLORHEXIDINE GLUCONATE 1 ML ORAL.SOL SWABMOUTH SCH ×2 (09:24→20:28)
[2016-11-22] MEDS: FAMOTIDINE/PF 20 MG/2 ML VIAL IV SCH ×2 (09:25→20:27)
--- NOTE | 2016-11-22 09:28 | Internal Med Progress Note ---
Medical - PN: Subj Patient information: Note initiated : 11/22/16 at 9:20 am Service Date, if different from initiated Date: [] Patient: Mckinley Gao 26 y/o M admitted on 11/20/16 for Swelling from Abscess Tooth/Peritonsillar Abscess. Chief Complaint: [] Interval history: November 19, 2016: History of present illness: Mr. Gao is a 26 year old male presents today complaining of right-sided facial swelling, and difficulty swallowing. this patient was diagnosed with a left tonsillar abscess in August of this year, and underwent tonsillectomy. He says he did fine for about one month and then 2 days ago started to have pain and swelling in his right lower jaw and right face. He presented to the emergency room 2 days ago, and was given a prescription for oral clindamycin. He returned to the emergency room this evening, with fever and chills, increasing swelling and pain and a muffled voice. He is having some pain with trying to swallow, but denies shortness of breath or stridor. ER evaluation did show a 2.4 cm right. Tonsillar abscess. Dr. Ceron of ENT was contacted and suggested IV steroids and clindamycin. The patient currently reports his pain as 7 out of 10. -otherwise, the patient does report a mild headache. He says he has been struggling with pain and a right lower molar for at least several days, but has been unable to find a dentist. He denies new eye or ear symptoms, sore throat or cough, chest pain or palpitations, shortness of breath, abdominal pain, nausea or vomiting, diarrhea or constipation, dysuria. November 20, 2016: he patient reports he is feeling quite a bit better this morning. His throat feels less swollen and he is having less difficulty swallowing. He still has discomfort if he tries to chew food on the right side. He did have several episodes of chills and sweats during the night but this morning does not feel subjective fever or chills. He otherwise denies headache or dizziness, ear pain, significant trouble swallowing, chest pain or palpitations, shortness of breath, nausea or vomiting , diarrhea or constipation, dysuria. I did contact Dr. Alfaro of ENT this morning. He does not feel that it is appropriate for ENT to drain this patient's abscess again and instead feels that the patient needs to have several abscessed teeth pulled as this appears to be the root cause of his problem. I then called Dr. Morel of oral surgery , and reviewed the case with him. He will try to come over late this afternoon to review the patient's studies, and consult. November 21: Patient seen examined, the patient was seen after his surgery. On my evaluation patient was intubated and sedated. He underwent drainage of his abscess, periodental and peritonsillar abscess. There was concern for him maintaining his airway, therefore the patient was kept intubated and will remain so till we are comfortable extubating him. Dr Beckman is following the patient. November 22: The patient seen examined, was sitting comfortably in the morning, awake wanting the tube out. He denied any discomfort. He was breathing at baseline vent settings. Leak test done and was positive,the patient was able to breath around the tube. Patient was extubated successfully to room air, he was able to cough after the procedure, racemic epi neb given, no wheezing or stridor noted. Patient to be kept on monitor for [address] to [address] air way stability. Pertinent ROS: Denies headache, dizziness Denies chest pain, palpitations Denies cough or shortness of breath Denies abdominal pain, vomiting x 1 after extubation. Additional PMFSH (Level 3 Only): reviewed - Constitutional Vitals: Vital Signs Temp Pulse Resp BP Pulse Ox 99.2 F H 110 H 16 150/85 100 11/22/16 04:00 11/22/16 08:24 11/22/16 08:24 11/22/16 07:01 11/22/16 08:25 Period Temp Pulse Resp BP Sys/Salvador Pulse Ox Last 24 Hr 98.2 F-100.1 F 52-110 12-20 94-150/58-86 96-100 Intake and Output 11/21/16 11/22/16 11/22/16 21:59 05:59 13:59 Intake Total 1793 / 1793 230 / 230 1010 / 1010 Output Total 690 / 690 515 / 515 45 / 45 Balance 1103 / 1103 -285 / -285 965 / 965 Weight 209 lb Intake & Output: Intake & Output 11/21/16 11/22/16 11/22/16 21:59 05:59 13:59 Intake Total 1793 / 1793 230 / 230 1010 / 1010 Output Total 690 / 690 515 / 515 45 / 45 Balance 1103 / 1103 -285 / -285 965 / 965 Weight 209 lb Intake: IV 1792 / 1792 130 / 130 1010 / 1010 Cleocin 600 mg In 54 / 54 108 / 108 Dextrose 5% in Water 50 ml @ 100 mls/hr IV Q6H [facility] Rx#:[id number] Potassium Chloride 20 Meq 1542 / 1542 1010 / 1010 In Sodium Chloride 0.45% 1,000 ml @ 100 mls/hr IV .Q10H6M [facility] Rx#: [id number] Diprivan 1,000 mg In 145 / 145 / 22 Premix 1 Bag @ 25 MCG/KG/ MIN 13.47 mls/hr IV . Q7H26M [facility] Rx#:[id number] IV - Manual Only 100 / 100 Output: Urine Catheter Amount 690 / 690 515 / 515 45 / 45 Other: # Bowel Movements 0 Exam: Constitutional; Afebrile, cooperative, alert, not in distress. Eyes- No icterus, , No periorbital swelling Ears- Ext ear normal, hearing normal to conversation. Neck- Midline trachea, supple Respiratory system: Air Entry equal on both sides, No crackles or wheezing, no rhonchi. No stridor CVS- Rate rhythm regular, S1,S2 heard, no gallop, no rub. Abdomen- Soft nontender abdomen, no organomegaly, no tenderness, no guarding or rigidity, CAPTURE MANAGER- AOOx3, moving all extremities, no gross focal deficit noted. Medical - PN: Obj Da - Labs CBC & Chem 7: 11/22/16 04:30 11/22/16 04:30 Labs: Abnormal Lab Results 11/22/16 11/22/16 11/21/16 04:30 04:30 04:55 WBC 15.3 H RBC 4.14 L Hgb 12.4 L Hct 36.8 L Gran % 89.2 H Lymph % (Auto) 8.0 L Gran # 13.7 H Lymph # 1.2 L Stearns # ESR Glucose 140 H 109 H Uric Acid 2.0 L Phosphorus Triglycerides 180 H 11/21/16 11/20/16 11/20/16 04:55 05: 05: WBC 20.9 H 17.7 H RBC 4.04 L Hgb 12.0 L Hct 35.3 L 40.0 L Gran % 82.9 H 94.7 H Lymph % (Auto) 9.5 L 3.2 L Gran # 17.3 H 16.8 H Lymph # 0.6 L Stearns # 1.5 H ESR 57 H 60 H Glucose 190 H Uric Acid Phosphorus 2.1 L Triglycerides Meds: Medications Acetaminophen (Tylenol) 650 mg PO Q6HP PRN PRN Reason: PAIN/FEVER > 101 Chlorhexidine Gluconate (Peridex) 15 ml SWABMOUTH BID [facility] Last Admin: 11/21/16 21:44 Dose: 15 ml Famotidine (Pepcid) 20 mg IV Q12 [facility] Last Admin: 11/21/16 21:43 Dose: 20 mg Heparin Sodium (Porcine) (Heparin) 5,000 unit SQ Q12 [facility] Last Admin: 11/21/16 21:43 Dose: 5,000 unit Hydromorphone HCl (Dilaudid) 0.5 mg IV Q2HP PRN PRN Reason: Pain Clindamycin Phosphate 600 mg/ (Dextrose) 54 mls @ 100 mls/hr IV Q6H [facility] Last Infusion: 11/22/16 05:59 Dose: Infused Potassium Chloride 20 meq/ (Sodium Chloride) 1,010 mls @ 100 mls/hr IV .Q10H6M [facility] Last Admin: 11/22/16 09:11 Dose: 100 mls/hr Lorazepam (Ativan) 0.5 mg IV Q4-6HP PRN PRN Reason: ANXIETY/SEDATION Last Admin: 11/22/16 05:02 Dose: 0.5 mg Magnesium Hydroxide (Milk Of Magnesia) 30 ml PO DAILYP PRN PRN Reason: Constipation Methylprednisolone Sodium Succinate (Solu-Medrol) 62.5 mg IV Q8 [facility] Last Admin: 11/22/16 05:23 Dose: 62.5 mg Naloxone HCl (Narcan) 0.1 mg IV Q2MIN PRN PRN Reason: Opiate Reversal Nicotine (Nicoderm) 21 mg TOPICAL DAILY@1000 [facility] Last Admin: 11/21/16 10:41 Dose: 21 mg Ondansetron HCl (Zofran) 4 mg IV Q6HP PRN PRN Reason: Nausea And Vomiting Last Admin: 11/22/16 09:05 Dose: 4 mg Sodium Chloride (Saline Flush) 10 ml IV Q8 [facility] Last Admin: 11/22/16 05:24 Dose: 10 ml - Imaging and cardiology Chest x-ray Status: image reviewed by me - ABG Interpretation Interpretation: respiratory acidosis, metabolic alkalosis Medical - PN: A/P - Time Spent With Patient Total time spent is greater than 50% in coordination of care (as documented) at patient's floor/unit and/or counseling patient: Greater than 35 minutes (cirtical care time spent, reviewing chart, managing vent, reviewing ABG, X ray, telemetery and care coordination) - Narrative A/P Narrative: Periodontal Abscess/ Yeimi tonsillar abscess: s/p drainage, continue IV steroids and IV clindamycin, await cultures. OMS following Sepsis: due to above, not in shock, source control and IV abx Mechanical Ventilation for airway protection: Due to edema, which was better this AM, patient extubated and tolerated procedure well, will monitor airway for now. DVT hepatin sq diet NPO for now. Code full Medical - PN: Qual - VTE Deep Vein Thrombosis/Pulmonary Embolism Present on Admission: No
[2016-11-22] MEDS: NICOTINE 21 MG PATCH TOPICAL SCH (12:15)
[2016-11-22] MEDS: HYDROmorphone 2 MG/ML SYRINGE IV PRN ×2 (13:19→21:36)
[2016-11-22] MEDS ORDERED: POTASSIUM CHLORIDE 20 MEQ/10 ML VIAL IV ONE (19:58)
[2016-11-23] MEDS: HYDROmorphone 2 MG/ML SYRINGE IV PRN ×2 (01:35→05:44)
[2016-11-23] MEDS: POTASSIUM CHLORIDE 20 MEQ in 0.45 % SODIUM CHLORIDE 1,000 ML IV SCH (03:33)
[2016-11-23 05:29] LABS: Basophils # (Auto) 0 K/mcL (0.0-0.3); Basophils % (Auto) 0 % (0.0-2.0); Eosinophils # (Auto) 0 K/mcL (0.0-0.7); Eosinophils % (Auto) 0 % (0.0-7.0); Granulocytes % (Auto) 88.5 % (38.0-78.0); Lymphocytes # (Auto) 1.3 K/mcL (1.5-4.8); Mean Cell Volume 87.5 fL (80.0-100.0); Mean Corpuscular HGB Conc 34.1 g/dL (31.0-36.0); Mean Corpuscular Hemoglobin 29.8 pg (26.0-34.0); Monocytes # (Auto) 0.5 K/mcL (0.1-0.9); Monocytes % (Auto) 3.5 % (1.0-12.0); Platelet Count 247 K/mcL (140-440); RBC 4.13 M/mcL (4.50-5.90); Red Cell Distribution Width 13.5 % (11.5-14.5)
[2016-11-23] MEDS: 0.9 % SODIUM CHLORIDE 10 ML SYRINGE IV SCH (05:34)
[2016-11-23] MEDS: CLINDAMYCIN 600 MG in DEXTROSE 5% IN WATER 50 ML IV SCH (05:34)
[2016-11-23] MEDS: methylPREDNISolone SOD SUCC 125 MG/2 ML VIAL IV SCH (05:34)
[2016-11-23 06:04] LABS: ALT/SGPT 9 U/l (0-40); Albumin 3.4 gm/dL (3.2-5.2); Albumin/Globulin Ratio 1.1 (1.0-2.3); Alkaline Phosphatase 80 U/L (39-117); Bilirubin,Direct < 0.2 mg/dL (0.0-0.3); Blood Urea Nitrogen 17 mg/dl (6-20); Gamma Glutamyl Transpeptidase 31 U/L (8-61); Magnesium 2.3 mg/dL (1.6-2.5); Uric Acid 3.5 mg/dL (2.5-8.0)
--- NOTE | 2016-11-23 07:42 | Discharge Summary ---
Medical - DS: Prov Patient information: Note initiated : 11/23/16 at 7:38 am Service Date, if different from initiated Date: [] Patient: Mckinley Gao 26 y/o M admitted on 11/20/16 for Swelling from Abscess Tooth/Peritonsillar Abscess. Chief Complaint: [] Date of admission: 11/20/16 00:11 Discharge date: 11/23/16 Primary care physician: PCP No Attending physician on admission: Honey Carnes Consults: 11/20/16 12:52 Consult to Physician [CONS] Routine Comment: abcessed teeth with peritonsillar abcess Consulting Provider: Mayra Morel Reason For Exam: Physician to Consult Discharging clinician: Re[facility] - DS: Meds - Discharge Medications Prescriptions: Chlorhexidine [Chlorhexidine Flavor] 10 ml MC BID #200 ml Clindamycin HCl [Cleocin] 300 mg PO QID #40 capsule HYDROcodone/ACETAMINOPHEN [Hydrocodon-Acetaminophen 5-325] 1 each PO Q6 PRN #40 tablet PRN Reason: Pain Active and Home Medications: Home Medications Clindamycin HCl [Cleocin] 300 mg PO QID #40 capsule 11/16/16 [Rx Confirmed 11/20 Last Taken 11/19/16 18:00] Naproxen 500 mg PO BID #30 tablet 11/16/16 [Rx Confirmed 11/20/16 Last Taken 18:00] Medical - DS: Hosp Hospital course: Mr. Gao is a 26 year old male with h/o recurrent peritonsillar abscess admitted to the hospital for sepsis and peritonsillar abscess, pt is s/p tonsillectomy and has been seen by ENT in the past. The patient underwent a CT neck which was evaluated by ENT and noted that the patient likely has periodontal abscess. [facility] was consulted, Dr Morel evaluated the patient and the patient underwent drainage of periodontal abscess as well as perioral abscess. The patient was at high risk of airway compromise and was therefore kept intubated x 24 hrs and given steroids. Patient was extubated yesterday and monitored for 24 hrs, without any problems. [facility] saw the patient today and cleared the patient for discharge. patient will be discharged home with follow up with [facility] in 5-7 days. Discharge diagnosis: Periodontal abscess. - Time Spent with Patient Total time spent providing and/or coordinating discharge services: Greater than 30 minutes Medical - DS: Exam - Constitutional Vitals: Vital Signs Temp Pulse Resp BP Pulse Ox 11/23/16 07:04 98.9 F 16 138/91 11/23/16 05:52 136/90 11/23/16 05:00 98.8 F 49 L 16 136/90 99 11/23/16 04:11 132/86 11/23/16 04:00 98.2 F 52 L 16 132/86 99 11/23/16 02:00 97.7 F 62 16 137/97 99 11/23/16 01:42 137/97 11/23/16 00:08 126/82 11/23/16 00:00 97.7 F 88 14 126/82 100 11/22/16 23:01 129/96 11/22/16 23:00 73 14 129/96 99 11/22/16 22:01 136/92 11/22/16 21:58 73 16 136/92 100 11/22/16 21:01 141/94 11/22/16 21:00 72 16 141/94 99 11/22/16 20:04 140/84 11/22/16 20:01 161/87 11/22/16 20:00 86 16 140/84 100 11/22/16 19:32 97 11/22/16 19:01 23 H 147/94 11/22/16 19:00 18 147/94 99 11/22/16 18:18 17 11/22/16 18:02 12 149/83 11/22/16 17:57 23 H 11/22/16 17:01 22 160/77 11/22/16 16:01 17 146/91 11/22/16 15:39 18 11/22/16 15:01 20 121/91 11/22/16 14:23 76 21 96 11/22/16 14:01 19 122/111 11/22/16 14:00 96 11/22/16 13:38 22 11/22/16 13:36 16 142/109 11/22/16 12:01 96 H 19 153/106 100 11/22/16 11:01 84 16 147/85 97 11/22/16 10:12 88 25 H 97 11/22/16 10:01 90 14 148/85 95 11/22/16 09:01 95 H 21 156/88 95 11/22/16 08:25 100 11/22/16 08:24 110 H 16 11/22/16 08:01 98.9 F 85 15 155/94 98 11/22/16 08:00 96 Intake and Output 11/22/16 11/23/16 11/23/16 21:59 05:59 13:59 Intake Total 1304 / 1304 996 / 996 Output Total 500 / 500 2200 / 2200 550 / 550 Balance 804 / 804 -1204 / -1204 -550 / -550 Intake: IV 1064 / 1064 796 / 796 Cleocin 600 mg In 54 / 54 54 / 54 Dextrose 5% in Water 50 ml @ 100 mls/hr IV Q6H [facility] Rx#:[id number] Potassium Chloride 20 Meq 1010 / 1010 742 / 742 In Sodium Chloride 0.45% 1,000 ml @ 100 mls/hr IV .[id number] [facility] Rx#: [id number] Oral 240 / 240 200 / 200 Output: Void Amount 500 / 500 2200 / 2200 550 / 550 Other: Weight 198 lb 3.2 oz Additional comments: Constitutional; Afebrile, cooperative, alert, not in distress. Eyes- No icterus, , No periorbital swelling Ears- Ext ear normal, hearing normal to conversation. Neck- Midline trachea, supple, swelling much reduced. Respiratory system: Air Entry equal on both sides, No crackles or wheezing, no rhonchi. no stridor, CVS- Rate rhythm regular, S1,S2 heard, no gallop, no rub. Abdomen- Soft nontender abdomen, no organomegaly, no tenderness, no guarding or rigidity, [employer]- AOOx3, moving all extremities, no gross focal deficit noted. Medical - DS: Data Labs on day of discharge: Labs from last 24 hours 11/23/16 11/23/16 04:09 04:09 WBC 15.6 H RBC 4.13 L Hgb 12.3 L Hct 36.1 L MCV 87.5 MCH 29.8 MCHC 34.1 RDW 13.5 Plt Count 247 MPV 8.2 Gran % 88.5 H Lymph % (Auto) 8.0 L [place] % (Auto) 3.5 Eos % (Auto) 0 Baso % (Auto) 0 Gran # 13.9 H Lymph # 1.3 L [place] # 0.5 Eos # 0 Baso # 0 Sodium 140 Potassium 4.6 Chloride 103 Carbon Dioxide 26 Anion Gap 11.0 BUN 17 Creatinine 0.7 GFR Calculation 128 Glucose 124 H Uric Acid 3.5 Calcium 9.2 Phosphorus 4.3 Magnesium 2.3 Total Bilirubin 0.2 Direct Bilirubin < 0.2 GGT 31 AST 11 ALT 9 Alkaline Phosphatase 80 Lactate Dehydrogenase 135 Total Protein 6.5 Albumin 3.4 Globulin 3.1 Albumin/Globulin Ratio 1.1 Triglycerides 145 Preliminary micro results at discharge 11/20/16 01:15 Blood Culture - Preliminary Blood 11/20/16 01:10 Blood Culture - Preliminary Blood 11/21/16 08:02 Anaerobic Culture - Preliminary Abscess - Other Gram positive cocci 11/21/16 08:02 Abscess Culture - Preliminary Mouth - Other Medical - DS: A/P - Patient/Caregiver Discharge Instructions Activity: increase activity as tolerated Diet: Regular Diet Additional Instructions: Advance diet as tolerated Follow up with Dr Morel within 1 week. Go to the ER if shortness of breath, recurrent fever or any other concerning symptom Do not drive, or use heavy machinery while on narcotic pain medications, no alcohol while taking pain meds, no sedatives or sleeping aids while on pain meds. Keep self well hydrated Use OTC stool softeners if any issues with constipation. - Follow up Plan Follow up with: Subha,PCP [Primary Care Provider] - Disposition: Home, Self-Care Prognosis: Good Rehab Potential: Good I certify that the patient requires SNF services: No Overall status at discharge: patient is progressing back to baseline Medical - DS: Qual - VTE Deep Vein Thrombosis/Pulmonary Embolism Present on Admission: No
[2016-11-23] MEDS ORDERED: predniSONE 20 MG TABLET PO SCH (08:00)
== END 2016-11-23 07:51 | disposition home or self-care (01) | DRG 133 ==
LOC: ED-MC 19:55 → MEDSUR 11-20 00:11 → ICU 11-21 08:45
PROVIDERS: ADMIT Internal Medicine; ATTEND Internal Medicine